=== PATIENT | female | born 2000 | race Hispanic/Latino ===

== ENCOUNTER 2024-02-19 18:57 | Emergency (ER) | payer OTHER ==
--- OUTSIDE RECORDS SUMMARY | 2024-02-19 18:59 | XMS REPORT | Continuity of Care Document ---
Author Name Unknown Address [address] [facility] [address] [place] [address] [facility] [address] [facility] [address] [place] [address] Care Team Providers Care Petal Cutter Name Role Phone [email or web address]_S Attending Clinician KETTY Anthony Attending Clinician Unavailable Nurse, [facility] Attending Clinician Un available Allyn Orozco MD Attending Clinician [phone] Doctor Unassigned, [facility] Attending Clinician U Ketty Cullen PA-C Attending Clinician [phone] [email or web address]_S Admitting Clinician Nabil stewart Payers Payer Name Policy Type Policy Number Effective Date Expirati on Date Source [place] [id number] 2022 00:00:00 [facility] [id number] [facility] II [id number] 2019 00:00:00 Problems Condition Name Condition Details Condition Category Status Onset Date Resolution Date Last Treatment Date Treating Clinician Comments Source Iron deficiency anemia, unspecifie d iron deficiency anemia type Iron deficiency anemia, unspecifie d iron deficiency anemia type Disease Active 3-15 00:00: 00 [facility] Bright red rectal bleeding Bright red rectal bleeding Disease Active - 00:00: 00 [facility] Allergies, Adverse Reactions, Alerts Allergy Name Allergy Type Status Severity Reaction(s) Onset Date Inactive Date Treating Clinician Comments Source NO KNOWN ALLERGIE S Drug Class Active [facility] Social History Social Habit Start Date Stop Date Quantity Comments Source Exposure to SARS-CoV-2 (event) Not sure [facility] Sex Assigned At [facility] Alcohol intake 2019-08-21 00:00:00 2019-08-21 00:00:00 [facility] Smoking Status Start Date Stop Date Source Never smoker [facility] Medications Ordered Medication Name Filled Medication Name Start Date Stop Date Current Medication? Ordering Clinician Indication Dosage Frequency Signature (SIG) Comments Components Source medroxyPROG ESTERone (DEPO-PROVE RA) injection 150 mg 11-20 14:45: 00 11-20 13:21 :00 No 150mg [facility] medroxyPROG ESTERone (DEPO-PROVE RA) injection 150 mg 12 19:15: 00 08-20 18:11 :00 No [id number] 150mg [facility] No known medications No [facility] No known medications No [facility] No known medications [facility] No known medications No [facility] No known medications No [facility] No known medications No [facility] No known medications No Un ruth ann [facility] Vital Signs Vital Name Observation Time Observation Value Comments S ource Systolic blood pressure 2019-11-21 13:38:00 105 mm[Hg] [facility] Diastolic blood pressure 2019-11-21 13:38:00 69 mm[Hg] [facility] Heart rate 2019-11-21 13:38:00 80 /min [facility] Body temperature 2019-11-21 13:38:00 36.78 Karina [facility] Respiratory rate 2019-11-21 13:38:00 18 /min [facility] Body height 2019-11-21 13:38:00 152.4 cm [facility] Body weight 2019-11-21 13:38:00 54.159 kg [facility] BMI 2019-11-21 13:38:00 23.32 kg/m2 [facility] Systolic blood pressure 2019-08-21 14:49:00 106 mm[Hg] [place] [facility] Diastolic blood pressure 2019-08-21 14:49:00 70 mm[Hg] [place] [facility] Heart rate 2019-08-21 14:49:00 76 /min [facility] Body temperature 2019-08-21 14:49:00 36.78 Karina [facility] Respiratory rate 2019-08-21 14:49:00 16 /min [facility] Body height 2019-08-21 14:49:00 152.4 cm [facility] Body weight 2019-08-21 14:49:00 49.805 kg [facility] BMI 2019-08-21 14:49:00 21.44 kg/m2 [facility] Procedures Procedure Date / Time Performed Performing Clinicia n Source ASSIGNMENT OF BENEFITS 2019-08-21 14:12:52 Docto r Unassigned, [facility] POCT TEST 2019-08-21 00:00:00 Eli Suarez [facility] Encounters Start Date/Time End Date/Time Encounter Type Admission Type Attending Clinicians Care Facility Care Department Encounter ID Source 2023-06-08 00:00:00 2023-06-08 00:00:00 Outpatient GC_GCBZW_Ka diyala_S PRIV PRIV [id number] [facility] 2023-05-11 00:00:00 2023-05-11 00:00:00 Outpatient GC_GCBZW_Ka diyala_S PRIV PRIV [id number] [facility] 2023-04-13 00:00:00 2023-04-13 00:00:00 Outpatient GC_GCBZW_Ka diyala_S PRIV PRIV [id number] [facility] 2023-03-26 00:00:00 2023-03-26 00:00:00 Outpatient GC_GCBZW_Ka diyala_S PRIV PRIV [id number] [facility] 2023-03-26 00:00:00 2023-03-26 00:00:00 Outpatient GC_GCBZW_Ka diyala_S PRIV PRIV [id number] [facility] 2023-03-16 00:00:00 2023-03-16 00:00:00 Outpatient GC_GCBZW_Ka diyala_S PRIV PRIV [id number] [facility] 2023-02-06 00:00:00 2023-02-06 00:00:00 Outpatient GC_GCBZW_Ka diyala_S PRIV PRIV [id number] [facility] 2023-02-05 00:00:00 2023-02-05 00:00:00 Outpatient GC_GCBZW_Ka diyala_S PRIV PRIV [id number] [facility] 2023-01-26 00:00:00 2023-01-26 00:00:00 Outpatient GC_GCBZW_Ka diyala_S PRIV PRIV [id number] [facility] 2020-08-23 08:30:00 2020-08-23 08:30:00 Outpatient KETTY KEENAN [facility] [id number] [facility] 2020-08-20 08:00:00 2020-08-20 08:00:00 Outpatient KETTY KEENAN [facility] [id number] [facility] 2020-02-23 08:00:00 2020-02-23 08:00:00 Outpatient R [facility] [id number] [facility] 2019-11-21 08:09:31 2019-11-21 08:22:14 Nurse Visit Nurse, [facility] [id number] [facility] 2019-11-21 08:00:00 2019-11-21 08:00:00 Outpatient R [facility] [id number] [facility] 2019-11-21 00:00:00 2019-11-21 00:00:00 Letter (Out) Doctor Unassigned, [facility] [id number] [facility] 2019-08-28 08:00:00 2019-08-28 08:00:00 [id number] 2019-08-21 09:10:20 2019-08-21 13:14:18 Office Visit Erick [facility] [id number] [facility] 2019-08-21 08:45:00 2019-08-21 08:45:00 Outpatient Lashawn SUAREZ [facility] [id number] [facility] 2019-08-21 00:00:00 2019-08-21 00:00:00 Orders Only Doctor Unassigned, [place] [facility] [id number] [facility] 2019-08-11 08:00:00 2019-08-11 08:30:00 [facility] [id number] [facility] 2019-08-11 08:00:00 2019-08-11 08:00:00 Outpatient Lashawn SUAREZ [facility] [id number] [facility] Results Test Description Test Time Test Comments Results Result Co mments Source UNLABELLED [id number] 06:00:31* Test Item Value Reference Range Interpretation Comme nts NOTE: (test code = 38503) SPECIMEN RECEIVE D WITHOUT PATIENT'S NAME. UNLESS OTHERWISE INDICATED, ALL TESTING PERFORMED [facility] [address] [place] [address] HIP HOP PERFORMERS: AURY PEREZ M.D. CLIA NUMBER [id number] [facility] [place]. [id number] CBC W/AUTO DIFF WITH [id number] 04:28:25* Test Item Value Reference Range Interpretation Comme nts WBC (test code = 1001) 6.4 K/UL 3.5-11.0 RBC (test code = 1002) 5.18 M/UL 3.80-5.40 HEMOGLOBIN (test code = 1003) 14.7 G/DL 11.5-15.5 HEMATOCRIT (test code = 1004) 43.7 % 34.0-45.0 MCV (test code = 1005) 84.4 fL 80.0-99.0 MCH (test code = 1006) 28.4 PG 25.0-33.0 MCHC (test code = 1007) 33.6 G/DL 31.0-36.0 RDW (test code = 1038) 12.8 % 11.5-15.0 NEUTROPHILS (test code = 1008) 58.6 % LYMPHOCYTES (test code = 1010) 31.4 % MONOCYTES (test code = 1011) 7.5 % EOSINOPHILS (test code = 1012) 0.9 % BASOPHILS (test code = 1013) 1.3 % IMMATURE GRANULOCYTES (test code = 1036) 0.3 % NUCLEATED RBCS (test code = 1065) 0.0 /100 WBC'S See_Comment [Automated message] The system which generated this result transmitted reference range: 0.0. The reference range was not used to interpret this result as normal/abnormal. PLATELET COUNT (test code = 1015) 253 K/UL 130-400 ABSOLUTE NEUTROPHILS (test code = 1066) 3.72 K/UL 1.50-7.50 ABSOLUTE LYMPHOCYTES (test code = 1067) 2.00 K/UL 1.00-4.00 ABSOLUTE MONOCYTES (test code = 1068) 0.48 K/UL 0.20-1.00 ABSOLUTE EOSINOPHILS (test code = 1040) 0.06 K/UL 0.00-0.50 ABSOLUTE BASOPHILS (test code = 1069) 0.08 K/UL 0.00-0.20 ABS IMMATURE GRANULOCYTES (test code = 1020) 0.02 K/UL 0.00-0.10 ABS NUCLEATED RBCS (test code = 42527) 0.00 K/UL 0.00-0.11 UNLESS OTHER [place] INDICATED, ALL TESTING PERFORMED [facility] [address] [place] [address] HIP HOP PERFORMERS: AURY PEREZ M.D. CLIA NUMBER [id number] [facility] [place]. [id number] POCT [id number] 15:23:00* Test Item Value Reference Range Interpretation Comme nts POCT PREG (test code = 1605) Negative On board controls acceptable with C Line (test code = 3574) Yes POCT PREG LOT # (test code = 3575) POCT PREG TEST DATE ( test code = 3576) [facility] [id number] 15:23:00* Test Item Value Reference Range Interpretation Comme nts POCT PREG (test code = 1605) Negative On board controls acceptable with C Line (test code = 3574) Yes POCT PREG LOT # (test code = 3575) POCT PREG TEST DATE ( test code = 3576) [facility] [id number] 15:23:00* Test Item Value Reference Range Interpretation Comme nts POCT PREG (test code = 1605) Negative On board controls acceptable with C Line (test code = 3574) Yes POCT PREG LOT # (test code = 3575) POCT PREG TEST DATE ( test code = 3576) [facility] [id number] 15:23:00* Test Item Value Reference Range Interpretation Comme nts POCT PREG (test code = 1605) Negative On board controls acceptable with C Line (test code = 3574) Yes POCT PREG LOT # (test code = 3575) POCT PREG TEST DATE ( test code = 3576) [facility] [id number] 15:23:00* Test Item Value Reference Range Interpretation Comme nts POCT PREG (test code = 1605) Negative On board controls acceptable with C Line (test code = 3574) Yes POCT PREG LOT # (test code = 3575) POCT PREG TEST DATE ( test code = 3576) [facility] [id number] 15:23:00* Test Item Value Reference Range Interpretation Comme nts POCT PREG (test code = 1605) Negative On board controls acceptable with C Line (test code = 3574) Yes POCT PREG LOT # (test code = 3575) POCT PREG TEST DATE ( test code = 3576) [facility]
[2024-02-19 20:11] LABS: Absolute Basophils 0.1 K/uL (0-0.5); Absolute Eosinophils 0.2 K/uL (0-0.5); Absolute Lymphocytes (CBC) 2.7 K/uL (0.7-4.9); Absolute Monocytes 0.6 K/uL (0.1-1.3); Absolute Neutrophil 4.6 K/uL (1.8-8.0); Basophils % 0.8 % (0-1.3); Eosinophils % 2.1 % (0-4.4); Hematocrit 38.8 % (36.0-45.0); Lymphocytes % 32.9 % (15.3-44.8); MCH 29.2 pg (27.0-35.0); MCHC 33.6 g/dL (32.0-36.0); MCV 86.9 fL (80-100); MPV 7.9 fL (7.6-11.3); Monocytes % 7.7 % (3.3-12.3); Neutrophils % 56.5 % (41.7-73.7); Platelets 302 thou/uL (152-406); RBC Red Blood Cell Count 4.47 M/uL (3.86-4.86); Red Cell Distribution Width 13.3 % (12.1-15.2)
[2024-02-19 20:12] LABS: Specific Gravity 1.023 (1.005-1.030)
[2024-02-19 20:16] LABS: Specific Gravity 1.023 (1.005-1.030); Urine Bacteria <20 /HPF (<20); Urine Bilirubin NEGATIVE (Negative); Urine Blood 3+ (OVER) (Negative); Urine Clarity Extremely Turbid (Clear); Urine Color Light-Orange (Yellow); Urine Crystals Unidentified Few /HPF (None Seen); Urine Culture Reflex Order REFLEXED; Urine Glucose NEGATIVE (Negative); Urine Ketones NEGATIVE (Negative); Urine Microscopic Reflex YN ORDER UMIC; Urine Mucus Slight /HPF (None Seen); Urine Nitrite NEGATIVE (Negative); Urine Protein 1+ (Negative); Urine RBC >50 /HPF (None Seen); Urine Urobilinogen 1+ (Normal); Urine WBC Clump Occasional /HPF (None Seen)
--- NOTE | 2024-02-19 20:21 | RAD REPORT ---
EXAM DESCRIPTION: US - Transvaginal OB - 02/19/2024 8:13 pm CLINICAL HISTORY: Abd cramping, ;Vaginal bleeding COMPARISON: No comparisons FINDINGS: The uterus is normal in size. No IUP is seen in the endometrium. Endometrial thickened to 11 mm. The maternal adnexa and ovaries are within normal limits. Normal Doppler blood flow was demonstrated to both ovaries. IMPRESSION: No IUP seen in the endometrium. If the patient has a positive HCG level, this would be c onsidered a of unknown location. Follow-up serial HCG levels and pelvic sonography in 7-10 days would be recommended.
[2024-02-19 20:32] LABS: Anion Gap 10.4 mEq/L (5.0-15.0); Potassium 3.4 mEq/L (3.5-5.1)
--- NOTE | 2024-02-19 21:00 | ER ---
Nurse's Notes [facility] Name: Yordy Sanabria Age: 23 yrs Sex: Female : 2000 Arrival Date: 02/19/2024 Time: 18:57 Bed 10 Private MD: Diagnosis: Threatened Presentation: 02/18 19:22 Chief complaint: Patient states: Having brown discharge this morning and this afternoon cm10 started having bleeding with passing of clots. Pt reports having pain to lower back and to RLQ. Coronavirus screen: Client denies travel out of the [place] in the last 14 days. At this time, the client does not indicate any symptoms associated with coronavirus-19. Ebola Screen: Patient denies travel to an Ebola-affected area in the 21 days before illness onset. No symptoms or risks identified at this time. Initial Sepsis Screen: Does the patient meet any 2 criteria? No. Patient's initial sepsis screen is negative. Does the patient have a suspected source of infection? No. Patient's initial sepsis screen is negative. Risk Assessment: Do you want to hurt yourself or someone else? Patient reports no desire to harm self or others. Onset of symptoms was February 19, 2024. 19:22 Method Of Arrival: Ambulatory cm10 19:22 Acuity: [place] 3 cm10 Triage Assessment: 19:24 General: Appears in no apparent distress. comfortable, Behavior is calm, cooperative. cm10 Neuro: No deficits noted. Level of Consciousness is awake, alert, obeys commands, Oriented to person, place, time, situation, Appropriate for age. Respiratory: No deficits noted. Airway is patent Respiratory effort is even, unlabored, Respiratory pattern is regular, symmetrical. 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 - Infectious Disease History:: Denies. - Social history:: Smoking status: Patient denies any tobacco usage or history of. Screenin:45 [facility] ED Fall Risk Assessment (Adult) History of falling in the last 3 months, me1 including since admission No falls in past 3 months (0 pts) Confusion or Disorientation No (0 pts) Intoxicated or Sedated No (0 pts) Impaired Gait No (0 pts) Mobility Assist Device Used No (0 pt) Altered Elimination No (0 pt) Score/Fall Risk Level 0 - 2 = Low Risk Maintained a safe environment, Provided non-skid footwear, Hourly rounding (assess needs \T\ fall precautionary measures) done. Abuse screen: Denies threats or abuse. Nutritional screening: No deficits noted. Tuberculosis screening: No symptoms or risk factors identified. Assessment: 19:45 General: Appears uncomfortable, well groomed, well developed, well nourished, Behavior me1 is calm, cooperative, appropriate for age, Reports Having brown discharge this morning and this afternoon started having bleeding with passing of clots. Pt reports having pain to lower back and to RLQ. Pain: Complains of pain in left low back and right low back Pain does not radiate. Pain currently is 3 out of 10 on a pain scale. Quality of pain is described as crampy, Pain began gradually, Is continuous. Neuro: Level of Consciousness is awake, alert, obeys commands, Oriented to person, place, time, situation, Appropriate for age. Cardiovascular: Patient's skin is warm and dry. Respiratory: Airway is patent Respiratory effort is even, unlabored, Respiratory pattern is regular, symmetrical. GI: No signs and/or symptoms were reported involving the gastrointestinal system. : Reports vaginal bleeding that is bright red, with clots, light flow. EENT: No signs and/or symptoms were reported regarding the EENT system. Derm: Skin is intact, is healthy with good turgor, Skin is pink, warm \T\ dry. Musculoskeletal: No signs and/or symptoms reported regarding the musculoskeletal system. Vital Signs: 19:22 BP 129 / 87; Pulse 91; Resp 16; Temp 97.3; Pulse Ox 99% on R/A; Weight 62.6 kg; Height cm10 5 ft. 1 in. ; Pain 2/10; 19:30 BP 110 / 73; Pulse 74; Resp 15; Pulse Ox 100% ; me1 20:00 BP 108 / 80; Pulse 74; Resp 15; Temp 98.1; Pulse Ox 99% ; me1 19:22 Body Mass Index 26.07 (62.60 kg, 154.94 cm) cm10 19:22 Pain Scale: Adult cm10 Vitals: 21:08 Heart Tones UTO. me1 ED Course: 19:01 Patient arrived in ED. ra3 19:02 Roxie Boland FNP-C is PHCP. kb 19:02 Kavin De La Cruz MD is Attending Physician. kb 19:23 Triage completed. cm10 19:24 Arm band placed on Patient placed in waiting room. cm10 19:45 Patient has correct armband on for positive identification. Bed in low position. Call me1 light in reach. Side rails up X2. Provided Education on: POC. Verbalized understanding. . Client placed on continuous cardiac and pulse oximetry monitoring. NIBP monitoring applied. Pulse ox on. NIBP on. 19:45 No provider procedures requiring assistance completed. me1 19:51 Nalini Espinoza, RN is Primary Nurse. me1 20:03 Initial lab(s) drawn, by nm, sent to lab. Urine collected: clean catch specimen, me1 cloudy, blood tinged. Inserted saline lock: 22 gauge in left antecubital area, using aseptic technique. 20:04 Abo/rh Typing Sent. me1 20:04 Basic Metabolic Panel Sent. me1 20:04 CBC with Diff Sent. me1 20:04 Test, Urine Sent. me1 20:04 Quantitative Hcg Sent. me1 20:04 Urinalysis w/ reflexes Sent. me1 20:15 US Transvaginal Ob In Process Unspecified. EDMS 21:08 IV discontinued, intact, bleeding controlled, No redness/swelling at site. Pressure me1 dressing applied. Administered Medications: No medications were administered Medication: 19:45 VIS not applicable for this client. me1 Outcome: 21:00 Discharge ordered by . magali 21:17 Discharged to home ambulatory, with significant other, me1 21:17 Condition: stable 21:17 Discharge instructions given to patient, significant other, Instructed on discharge instructions, follow up and referral plans. Demonstrated understanding of instructions, follow-up care, 21:18 Patient left the ED. me1 Signatures: Dispatcher [employer] EDNE Roxie Boland FNP-C FNP-Ckb Martinez Aicha, RN RN cm10 Nalini Espinoza RN RN me1 Jasmin Beavers ra3 Corrections: (The following items were deleted from the chart) 20:58 19:22 Chief complaint: Patient states: Having brown discharge this morning and this me1 afternoon started having bleeding with passing of clots. Pt reports having pain to lower back and to RLQ. cm10
--- NOTE | 2024-02-19 21:00 | EDPHYS ---
Physician Documentation [facility] Name: Yordy Sanabria Age: 23 yrs Sex: Female : 2000 Arrival Date: 02/19/2024 Time: 18:57 Bed 10 Private MD: ED Physician Kavin De La Cruz HPI: 02/18 19:24 This 23 yrs old Female presents to ER via Ambulatory with complaints of kb Vaginal Bleeding, + Preg <12wks. 19:24 Pt is a 23 year old female who presents for vaginal bleeding that started today. kb Reports she is 9 weeks . LMP 12/15/23. 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 - Infectious Disease History:: Denies. - Social history:: Smoking status: Patient denies any tobacco usage or history of. ROS: 19:26 Constitutional: As per HPI kb Exam: 19:26 Constitutional: This is a well developed, well nourished patient who is awake, alert, kb and in no acute distress. Head/Face: Normocephalic, atraumatic. ENT: Moist Mucous membranes Cardiovascular: Regular rate Respiratory: Respirations even and unlabored. No increased work of breathing. Talking in full sentences Abdomen/GI: Soft, non-tender. No distention Skin: Warm, dry with normal turgor. Normal color. MS/ Extremity: Pulses equal, no cyanosis. Neurovascular intact. Full, normal range of motion. Neuro: Awake and alert, GCS 15, oriented to person, place, time, and situation. Moves all extremities. Normal gait. Vital Signs: 19:22 BP 129 / 87; Pulse 91; Resp 16; Temp 97.3; Pulse Ox 99% on R/A; Weight 62.6 kg; Height cm10 5 ft. 1 in. ; Pain 2/10; 19:30 BP 110 / 73; Pulse 74; Resp 15; Pulse Ox 100% ; me1 20:00 BP 108 / 80; Pulse 74; Resp 15; Temp 98.1; Pulse Ox 99% ; me1 19:22 Body Mass Index 26.07 (62.60 kg, 154.94 cm) cm10 19:22 Pain Scale: Adult cm10 MDM: 19:02 Patient medically screened. kb 20:59 Differential diagnosis: threatened Ab, inevitable Ab, complete Ab. Data reviewed: vital kb signs, nurses notes. Counseling: I had a detailed discussion with the patient and/or guardian regarding the historical points, exam findings, and any diagnostic results supporting the discharge/admit diagnosis, lab results, radiology results, the need for outpatient follow up, an OB/Gyne specialist, to return to the emergency department if symptoms worsen or persist or if there are any questions or concerns that arise at home. 02/18 19:23 Order name: Abo/rh Typing; Complete Time: 20:33 kb 02/18 19:23 Order name: Basic Metabolic Panel; Complete Time: 20:33 kb 02/18 19:23 Order name: CBC with Diff; Complete Time: 20:18 kb 02/18 19:23 Order name: Test, Urine; Complete Time: 20:18 kb 02/18 19:23 Order name: Quantitative Hcg; Complete Time: 20:33 kb 02/18 19:23 Order name: Urinalysis w/ reflexes; Complete Time: 20:38 kb 02/18 20:39 Order name: Urine Culture EDMS 02/18 19:23 Order name: US Transvaginal Ob; Complete Time: 20:22 kb 02/18 19:23 Order name: IV Saline Lock; Complete Time: 20:04 kb 02/18 19:23 Order name: Labs collected and sent; Complete Time: 20:04 kb 02/18 19:23 Order name: NPO; Complete Time: 20:04 kb Administered Medications: No medications were administered Disposition Summary: 02/19/24 21:00 Discharge Ordered Notes: Location: Home kb Condition: Stable kb Diagnosis - Threatened kb Followup: kb - With: Emergency Department - When: As needed - Reason: Worsening of condition Followup: kb - With: Private Physician - When: 2 - 3 days - Reason: Recheck today's complaints, Continuance of care, Re-evaluation by your physician Discharge Instructions: - Discharge Summary Sheet kb - Threatened Miscarriage, [id number] kb - Vaginal Bleeding During , First Trimester, Jssf-[id number] kb Forms: - Medication Reconciliation Form kb - Antibiotic Education kb - Prescription Opioid Use kb - Patient Portal Instructions kb - Leadership Thank You Letter kb Addendum: 02/23/2024 15:45 Co-signature as Attending Physician, Kavin De La Cruz MD I agree with the assessment and c olivo plan of care. Signatures: Dispatcher [employer] Roxie Zaragoza, IMMIGRATION OFFICER-C IMMIGRATION OFFICER-Kavin Magana MD MD cha Martinez, Clarissa, RN RN cm10 Corrections: (The following items were deleted from the chart) 02/18 19:23 19:23 Transvaginal Ob+US.RAD.BRZ ordered. [facility]
[2024-02-19 22:06] VITALS: BP 108/80; TEMP 98.1; O2SAT 99
== END 2024-02-19 21:18 | disposition home or self-care (01) ==
LOC: ER 18:57
DX: O20.0 Threatened abortion (principal); Z3A.09 9 weeks gestation of pregnancy
CPT/HCPCS: 36415; 76817; 80048; 81001; 81025; 84702; 85025; 86900; 86901; 87086; 87088; 99284